=== PATIENT | female | born 1975 | race Hispanic/Latino ===

== ENCOUNTER 2018-11-22 14:37 | Observation (INO) | payer MEDICAID, OTHER ==
[~2018-11-22] VITALS: Ht 162.6 cm; Wt 104.3 kg
[2018-11-22 15:14] LABS: BASOPHILS % (AUTO) 0.8 % (0.0-5.0); EOSINOPHILS % (AUTO) 1.3 % (0.0-8.0); LYMPHOCYTES % (AUTO) 22.9 % (21.0-51.0); MEAN CORPUSCULAR HGB CONC 28.4 g/dL (32.0-36.0); MEAN CORPUSCULAR VOLUME 56.4 fL (79-99); MONOCYTES % (AUTO) 6.9 % (3.0-13.0); NEUTROPHILS % (AUTO) 68.1 % (40.0-77.0); NUCLEATED RED BLOOD CELLS 0.2 % (0.0-0.19); PLATELET COUNT (AUTO) 217 K/uL (130-400); RED BLOOD CELL COUNT(AUTO) 3.59 MIL/uL (4.00-5.50); RED CELL DISTRIBUTION WIDTH 21.3 % (11.0-15.5); WHITE BLOOD COUNT (AUTO) 4.5 K/uL (4.8-10.8)
[2018-11-22 15:25] LABS: HEMATOCRIT 20.2 % (36-48)
[2018-11-22 15:26] LABS: PARTIAL THROMBOPLASTIN TIME 23.1 SEC (26.3-35.5); PROTHROMBIN TIME 10.5 SEC (9.6-11.6)
[2018-11-22 15:28] LABS: CREATININE 0.6 mg/dL (0.5-1.5); POTASSIUM 3.4 mmol/L (3.5-5.1)
[2018-11-22 15:33] LABS: ALBUMIN 3.7 g/dL (3.5-5.0); BILIRUBIN,TOTAL 0.3 mg/dL (0.2-1.0); TOTAL PROTEIN, SERUM 7.3 g/dL (6.0-8.3)
[2018-11-22] MEDS ORDERED: LACTATED RINGERS 1000ML 1,000 ML IV SCH (18:00)
[2018-11-22] MEDS ORDERED: THYR300T PO (18:38)
[2018-11-22 19:24] VITALS: BP 136/70
[2018-11-23 00:02] VITALS: BP 119/66
[2018-11-23 04:31] VITALS: BP 121/55
[2018-11-23 05:52] LABS: HEMATOCRIT 24.2 % (36-48); MEAN CORPUSCULAR HEMOGLOBIN 18.8 pg (27.0-33.0); MEAN CORPUSCULAR HGB CONC 29.9 g/dL (32.0-36.0); MEAN CORPUSCULAR VOLUME 62.8 fL (79-99); NUCLEATED RED BLOOD CELLS 0.2 % (0.0-0.19); PLATELET COUNT (AUTO) 180 K/uL (130-400); RED BLOOD CELL COUNT(AUTO) 3.85 MIL/uL (4.00-5.50); RED CELL DISTRIBUTION WIDTH 28.9 % (11.0-15.5); WHITE BLOOD COUNT (AUTO) 4.8 K/uL (4.8-10.8)
[2018-11-23 07:30] VITALS: BP 136/66
--- NOTE | 2018-11-23 08:00 | NUR ---
PATIENT ASSESSED AND STATES LMP WAS ON 10/30/18 AND WAS HEAVY. PATIENT DOES NOT HAVE AT THIS TIME VAGINAL BLEEDING BUT STATES STARTED FEELING VERY DIZZY AND HAD SHORTNESS OF BREATH. PATIENT IS STABLE AT THIS TIME AND CALLED DR. JONES WITH [facility] AND INDICATED TO TRANSFUSE ONE MORE UNIT OF BLOOD.
[2018-11-23] MEDS ORDERED: ACETAMINOPHEN 325 MG TAB PO PRN (08:45)
--- NOTE | 2018-11-23 09:15 | NUR ---
DR. JONES ROUNDED AND ORDERS GIVEN FOR INDICATED TO GIVEN ONE MORE UNIT PRBC AND HAVE A PELVIC SONO TO BE DONE PRIOR TO DISCHARGE. INFORMED PATIENT TO FOLLOW UP MONDAY, November FOR FOLLOW UP IN CLINIC AND PLAN FOR SURGERY.
[2018-11-23 11:05] VITALS: BP 134/84
[2018-11-23 15:54] VITALS: BP 137/71
--- NOTE | 2018-11-23 16:30 | NUR ---
PATIENT WAS GIVEN DISCHARGE INSTRUCTIONS AND SCRIPT FOR IRON GIVEN. PATIENT GIVEN INFO ON RICH IRON DIET AND TO HAVE VITAMIN C WITH IRON TO HELP WITH ABSORPTION OF IRON.
--- NOTE | 2018-11-23 16:40 | NUR ---
PATIENT WAS DISCHARGED AT THIS TIME AND WAS DISCHARGED WITH FAMILY. PATIENT PINA PAIN AND DENIES ANY FURTHER DIZZINESS. STATES HAVING A SLIGHT HEADACHE AND INSTRUCTED TO TAKE TYLENOL OVER THE COUNTER.
== END 2018-11-23 16:40 | disposition home or self-care (01) ==
LOC: EDH 14:37 → EDHIP 16:21 → OBSVTOIN 16:21 → INTOOBSV 16:21 → WSH 17:42
PROVIDERS: ADMIT Obstetrics & Gynecology; ATTEND Obstetrics & Gynecology
DX: R42 Dizziness and giddiness (principal); E03.9 Hypothyroidism, unspecified; D64.9 Anemia, unspecified; Z88.0 Allergy status to penicillin; Z90.49 Acquired absence of other specified parts of digestive tract; Z79.01 Long term (current) use of anticoagulants
CPT/HCPCS: 36415 ×2; 36430 ×2; 76856; 80053; 85025; 85027; 85060; 85610; 85730; 86850; 86900; 86901; 86922 ×3; 96360; 96361; 99284; G0378 ×24; J7120; P9016 ×3; 96366

== ENCOUNTER → 2023-04-07 | Outpatient (CLI) | payer OTHER ==
[~2023-04-07] MED LIST: IOHEXOL 350 MG/ML 100ML INFUS..BTL IV ONE; THYR300T PO
== END | disposition home or self-care (01) ==
LOC: RAH 07:52
PROVIDERS: ATTEND Internal Medicine Gastroenterology
DX: K76.0 Fatty (change of) liver, not elsewhere classified (principal); R10.10 Upper abdominal pain, unspecified; M47.816 Spondylosis without myelopathy or radiculopathy, lumbar region; R16.0 Hepatomegaly, not elsewhere classified; N20.0 Calculus of kidney; I70.0 Atherosclerosis of aorta; R16.2 Hepatomegaly with splenomegaly, not elsewhere classified; Z90.49 Acquired absence of other specified parts of digestive tract
CPT/HCPCS: 74170; Q9967

== ENCOUNTER → 2025-01-30 | Outpatient (CLI) | payer OTHER ==
[~2025-01-30] MED LIST changes: -IOHEXOL 350 MG/ML 100ML INFUS..BTL IV ONE
--- NOTE | 2025-01-30 14:15 | HMCIMG ---
CT HEART SAVER PROMOTIONAL HISTORY: Calcium scoring COMPARISON: None TECHNIQUE: Computed tomography of the heart was performed with ECG gating and suspended respiration. Postprocessing was performed on a computer workstation to obtain diastolic phase images, determine calcium score and provide a quantitative assessment of extent of disease. This CT included only the heart. HeartSaver score is 3.1. Please see cardiac calcium score report. The available CT chest images show no acute finding. CT was performed with one or more following dose reduction techniques: automated exposure control, adjustment of the mA and kv according to patient's size, or use of a iterative reconstruction technique.
== END | disposition home or self-care (01) ==
LOC: RAH 13:24
PROVIDERS: ATTEND Nurse Practitioner Family
DX: Z13.6 Encounter for screening for cardiovascular disorders (principal)
CPT/HCPCS: 75571